=== PATIENT | female | born 1990 | race Caucasian/White ===

== ENCOUNTER 2022-02-09 09:30 | Inpatient (IN) | payer OTHER ==
[~2022-02-09] VITALS: Ht 157.5 cm; Wt 60.8 kg
[2022-02-09] MEDS ORDERED: PRENATAL TABLE1 EAC3 PO (10:21)
== END 2022-02-11 15:03 | disposition home or self-care (01) | DRG 807 ==
LOC: EDBD 09:30 → OB/GYN 09:30 → LDR 09:30 → OB/GYN 13:53
PROVIDERS: ADMIT Obstetrics & Gynecology; ATTEND Obstetrics & Gynecology
PROC: 10E0XZZ Delivery of Products of Conception, External Approach (ICD-10-PCS; principal; 2022-02-09)
PROC: 4A1HXCZ Monitoring of Products of Conception, Cardiac Rate, External Approach (ICD-10-PCS; 2022-02-09)
DX: O80 Encounter for full-term uncomplicated delivery (principal); Z37.0 Single live birth; Z3A.39 39 weeks gestation of pregnancy; Z20.822 Contact with and (suspected) exposure to COVID-19